=== PATIENT | female | born 1960 | race Caucasian/White ===

== ENCOUNTER → 2016-12-19 | Outpatient (CLI) | payer MEDICARE, BC ==
--- NOTE | 2016-12-20 08:58 | MM ---
Reason for exam: screening (asymptomatic). Last mammogram was performed 1 year and 1 month ago. History: Patient is postmenopausal. Physical Findings: A clinical breast exam by your physician is recommended on an annual basis and results should be correlated with mammographic findings. MG 3D Screening Mammo W/Cad Bilateral CC and MLO view(s) were taken. Prior study comparison: November 15, 2015, bilateral MG 3d screening mammo w/cad. April 08, 2013, mammogram, performed at [facility]. There are scattered fibroglandular densities. There is no discrete abnormality. No significant changes when compared with prior studies. ASSESSMENT: Negative, BI-RAD 1 RECOMMENDATION: Routine screening mammogram of both breasts in 1 year.
== END | disposition home or self-care (01) ==
LOC: RADMAMWWP 08:09
PROVIDERS: ATTEND Pediatrics
DX: Z12.31 Encounter for screening mammogram for malignant neoplasm of breast (principal)
CPT/HCPCS: 77063; G0202

== ENCOUNTER → 2018-01-09 | Outpatient (CLI) | payer MEDICARE, BC ==
--- NOTE | 2018-01-19 11:54 | MM ---
Reason for exam: screening (asymptomatic). Last mammogram was performed 1 year and 1 month ago. History: Patient is postmenopausal. Physical Findings: A clinical breast exam by your physician is recommended on an annual basis and results should be correlated with mammographic findings. MG 3D Screening Mammo W/Cad Bilateral CC and MLO view(s) were taken. Prior study comparison: December 19, 2016, bilateral MG 3d screening mammo w/cad. November 15, 2015, bilateral MG 3d screening mammo w/cad. The breast tissue is heterogeneously dense. This may lower the sensitivity of mammography. There is no discrete abnormality. No significant changes when compared with prior studies. ASSESSMENT: Negative, BI-RAD 1 RECOMMENDATION: Routine screening mammogram of both breasts in 1 year.
== END | disposition home or self-care (01) ==
LOC: RADMAMWWP 14:09
PROVIDERS: ATTEND Pediatrics
DX: Z12.31 Encounter for screening mammogram for malignant neoplasm of breast (principal)
CPT/HCPCS: 77063; 77067

== ENCOUNTER → 2019-03-08 | Outpatient (CLI) | payer MEDICARE, BC ==
--- NOTE | 2019-03-09 13:23 | USB ---
Reason for exam: clinical finding. History: Patient is postmenopausal. Physical Findings: Nurse did not find any significant physical abnormalities on exam. US Breast Limited RT Right limited breast ultrasound including focal area of concern, retroareolar and axilla demonstrates a 0.5 x 0.4 x 0.4cm vascular lesion at 10 o'clock, mass with increased through transmission hilum, appears as an intramammary lymph node. These results were verbally communicated with the patient and result sheet given to the patient on 03/08/19. ASSESSMENT: Benign, BI-RAD 2 RECOMMENDATION: Routine screening mammogram of both breasts in 1 year.
== END | disposition home or self-care (01) ==
LOC: RADUSWWP 10:54
PROVIDERS: ATTEND Pediatrics
DX: R92.8 Other abnormal and inconclusive findings on diagnostic imaging of breast (principal)

== ENCOUNTER → 2019-03-23 | Outpatient (CLI) | payer MEDICARE, BC ==
--- NOTE | 2019-03-23 15:07 | P.BASOAP ---
Subjective Progress Note Date: 03/23/19 Principal diagnosis: Morbid obesity Patient presents today for follow-up bariatric evaluation. Patient is known to our service from previous lap band placement years ago. She had been following the at [facility]. Her band has been empty for the last several years. Despite that the patient has had episodes of dysphagia and vomiting along with reflux symptoms. She is interested in band removal. She is due for colonoscopy at this time. We have her scheduled currently for upper and lower endoscopy this Friday. Patient is not interested in band conversion. Mild abdominal pain at times. Last colonoscopy 4-1/2 years ago. Hyperplastic polyp found at that time. Last esophagram 2014 was normal. Objective - Exam Abdomen: Soft, nontender, nondistended Assessment/Plan (1) Morbid obesity Narrative/Plan: Will proceed with upper and lower endoscopy this Friday. Following that we'll tentatively plan band removal. Patient not interested in band conversion. Plan: Date: Initial Weight: Initial BMI: Current Weight: Current BMI: Type of Surgery: Total Volume in Band: Previous Volume: Volume Removed: Volume Added: Band Size:
[2019-03-23 15:21] VITALS: BP 163/84; PULSE 57; TEMP 98.2; BMI 37.8
== END ==
LOC: BARWHC3 13:43
PROVIDERS: ATTEND Surgery
DX: E66.01 Morbid (severe) obesity due to excess calories (principal); R10.9 Unspecified abdominal pain; Z68.38 Body mass index [BMI] 38.0-38.9, adult
CPT/HCPCS: 99211

== ENCOUNTER → 2019-03-26 | Day surgery (SDC) | payer MEDICARE, BC ==
[2019-03-24 11:00] VITALS: BMI 38.0
[~2019-03-26] MED LIST: HYDROcodone/APAP 7.5-325MG 1 EACH TAB PO ONE; LACTATED RINGERS 1,000 ML IV SCH; LIDOCAINE 1% 20 ML VIAL (10MG/ML) FOR IV START INTRADERMA PRN; LIDOCAINE 1% INJ 10MG/ML (20 ML MDV) ONE; MIDAZOLAM 2 MG/2 ML VIAL IV ONE; ONDANSETRON 4 MG/2 ML VIAL IVP ONE; PROPOFOL 10 MG/ML 20 ML VIAL IV ONE
[2019-03-26 07:49] VITALS: TEMP 98.1
--- NOTE | 2019-03-26 07:54 | P.GSHP ---
History of Present Illness H&P Date: 03/26/19 Chief Complaint: Vomiting, GERD, screening Patient on our service. Underwent previous lap band placement. Patient's lap band has been emptied. Despite that the patient is having episodes of reflux and vomiting. She is interested in band removal. Previous upper GI several years ago was normal. Also due for screening colonoscopy. No GI complaints. Past Medical History Past Medical History: Diabetes Mellitus, GERD/Reflux, Hyperlipidemia, Hypertension Additional Past Medical History / Comment(s): PT STATES HX OF "INFECTIOUS DISEASE" RT KNEE 07/13/13-HAD TO BE ON VANCOMYCIN-NOT SURE WHAT TYPE OF INFECTION IT WAS History of Any Multi-Drug Resistant Organisms: Other MDRO Date of last positivie culture/infection: 07/13/13 MDRO Source:: LT KNEE Past Surgical History: Back Surgery, Cholecystectomy, Hysterectomy, Joint Replacement, Orthopedic Surgery Additional Past Surgical History / Comment(s): LYSIS OF ADHESIONS. RT ANKLE REPAIR. RT ROTATOR CUFF REPAIR. CTR-BILAT X 2. COLONSCOPY. LT KNEE. LT TKA X 2. RT KNEE SCOPES X 3. D & C Past Anesthesia/Blood Transfusion Reactions: Motion Sickness, Postoperative Nausea & Vomiting (PONV) Smoking Status: Never smoker - Past Family History Mother Family Medical History: Cancer Father Family Medical History: Deep Vein Thrombosis (DVT) Medications and Allergies Home Medications Medication Instructions Recorded Confirmed Type DULoxetine HCL [Cymbalta] 60 mg PO HS 07/15/14 03/26/19 History Ezetimibe [Zetia] 10 mg PO HS 07/15/14 03/26/19 History Furosemide [Lasix] 40 mg PO DAILY 07/15/14 03/26/19 History HYDROcodone/APAP 7.5-325MG [[place] 1 each PO Q6HR PRN 07/15/14 03/26/19 History 7.5-325] INSULIN ASPART (NovoLOG) [NovoLOG] 0 unit SQ TID PRN 07/15/14 03/26/19 History Insulin Glargine [Lantus] 40 unit SQ DAILY 07/15/14 03/26/19 History metFORMIN HCL [Glucophage] 500 mg PO BID 07/15/14 03/26/19 History Baclofen [Lioresal] 10 mg PO TID 03/03/19 03/26/19 History Multivitamins, Thera [Multivitamin 1 tab PO DAILY 03/03/19 03/26/19 History (formulary)] Topiramate [Topamax] 50 mg PO BID 03/03/19 03/26/19 History Escitalopram [Lexapro] 5 mg PO DAILY 03/24/19 03/26/19 History Omeprazole 20 mg PO DAILY 03/24/19 03/26/19 History Allergies Allergy/AdvReac Type Severity Reaction Status Date / Time nickel Allergy Rash/Hives Verified 03/26/19 07:32 Surgical - Exam Vital Signs Temp Pulse Resp BP Pulse Ox 98.1 F 88 16 165/85 98 03/26/19 07:35 03/26/19 07:35 03/26/19 07:35 03/26/19 07:35 03/26/19 07:35 Physical exam: General: Well-developed, well-nourished HEENT: Normocephalic, sclerae nonicteric Abdomen: Nontender, nondistended Extremities: No edema Neuro: Alert and oriented Assessment and Plan (1) GERD (gastroesophageal reflux disease) Narrative/Plan: Will proceed with upper and lower endoscopy at this time. Current Visit: Yes Status: Acute Code(s): K21.9 - GASTRO-ESOPHAGEAL REFLUX DISEASE WITHOUT ESOPHAGITIS SNOMED Code(s): 200580427
[2019-03-26 08:01] LABS: Glucose,Whole Blood 160 mg/dL (75-99)
--- NOTE | 2019-03-26 09:37 | P.PCN ---
Date of Procedure: 03/26/19 Procedure(s) Performed: PREOPERATIVE DIAGNOSIS: Colon cancer screening, GERD, vomiting POSTOPERATIVE DIAGNOSIS: Mild gastritis, poor colonic prep, descending colon and rectal polyp PROCEDURE: 1. EGD with biopsy 2. Colonoscopy with snare polypectomy and biopsy ANESTHESIA: [facility] [place]GEON: Osmany Abbasi M.D. SPECIMENS: Antrum, polyps ENDOSCOPIC PROCEDURE: The patient was on the endoscopy table in the left decubitus position. The Olympus gastroscope was inserted into the oropharynx and passed under direct visualization to the region of the third portion of the duodenum. From that point the scope was slowly withdrawn inspecting all surfaces carefully. There were no neoplastic inflammatory or polypoid lesions throughout the duodenum. The pylorus was widely patent. The stomach was carefully inspected. There was mild gastritis present. A biopsy of the antrum took place to rule out H. pylori. Retroflexion revealed a band plication. No evidence of erosion or prolapse seen. The esophagus was then carefully examined. There were no neoplastic inflammatory or polypoid lesions throughout the visualized esophagus. The patient was kept on the endoscopy table in the left decubitus position. The Olympus colonoscope was inserted into the anus and passed under direct visualization to the base of the cecum. The appendiceal orifice was visualized. From that point the scope was slowly withdrawn inspecting all surfaces carefully. There were no neoplastic inflammatory or polypoid lesions throughout the cecum, ascending, and transverse colon. In the descending colon a small polyp was identified and removed using the biopsy forceps. The descending and sigmoid beyond that appeared normal. In the rectum proximally a small polyp was identified and removed using the snare with cautery technique. The remainder of the rectovaginal fistula. The patient's prep was suboptimal with limitations of mucosal visualization throughout. No visible diverticulosis. Digital rectal examination was normal. The patient was taken to the recovery room in stable condition per anesthesia guidelines. RECOMMENDATIONS: Await biopsy results. Proceed with band removal.
[2019-03-26 09:53] LABS: Glucose,Whole Blood 141 mg/dL (75-99)
[2019-03-26 10:13] VITALS: RESP 16
[2019-03-26 10:26] VITALS: BP 152/89; PULSE 67
== END ==
LOC: ORWHC2ENDO 07:15
PROVIDERS: ATTEND Surgery
DX: Z12.11 Encounter for screening for malignant neoplasm of colon (principal); D12.8 Benign neoplasm of rectum; K29.50 Unspecified chronic gastritis without bleeding; K63.89 Other specified diseases of intestine; K21.9 Gastro-esophageal reflux disease without esophagitis; E11.9 Type 2 diabetes mellitus without complications; E78.5 Hyperlipidemia, unspecified; I10 Essential (primary) hypertension; Z86.19 Personal history of other infectious and parasitic diseases; Z96.652 Presence of left artificial knee joint; Z97.2 Presence of dental prosthetic device (complete) (partial); Z84.89 Family history of other specified conditions; Z79.4 Long term (current) use of insulin; Z79.899 Other long term (current) drug therapy; Z79.891 Long term (current) use of opiate analgesic; Z91.048 Other nonmedicinal substance allergy status
CPT/HCPCS: 88305; 45380; 45385; 43239; J2250; J2405; J2001; J2704

== ENCOUNTER → 2019-04-27 | Outpatient (CLI) | payer MEDICARE, BC ==
[2019-04-27 09:48] LABS: Basophils # (A) 0.1 k/uL (0-0.2); Basophils % (A) 1 %; Eosinophils # (A) 0.5 k/uL (0-0.7); Eosinophils % (A) 5 %; HCT 41.4 % (34.0-46.0); HGB 13.5 gm/dL (11.4-16.0); Lymphocytes # (A) 1.5 k/uL (1.0-4.8); Lymphocytes % (A) 17 %; MCH 28.8 pg (25.0-35.0); MCHC 32.7 g/dL (31.0-37.0); MCV 88.1 fL (80.0-100.0); Mean Platelet Volume 6.6; Monocytes # (A) 0.4 k/uL (0-1.0); Monocytes % (A) 5 %; Neutrophils # (A) 6.4 k/uL (1.3-7.7); Neutrophils % (A) 72 %; Platelet Count 273 k/uL (150-450); WBC 8.9 k/uL (3.8-10.6)
[2019-04-27 10:00] LABS: Calcium 9.7 mg/dL (8.4-10.2); Potassium 4.7 mmol/L (3.5-5.1); Total Bilirubin 0.7 mg/dL (0.2-1.3); Total Protein 6.7 g/dL (6.3-8.2)
== END | disposition home or self-care (01) ==
LOC: LABPAT 08:20
PROVIDERS: ATTEND Surgery
DX: Z01.812 Encounter for preprocedural laboratory examination (principal)
CPT/HCPCS: 36415; 80053; 85025; 93005

== ENCOUNTER 2019-05-10 08:33 | Day surgery (SDC) | payer MEDICARE, BC ==
[2019-04-28 14:01] VITALS: BMI 37.8
[~2019-05-10 08:33] MED LIST changes: +DEXAMETHASONE SOD PHOSPHATE 10 MG/ML 1 ML VIAL IV ONE; +HEPARIN SODIUM,PORCINE 5,000 UNIT/ML 1 ML VIAL SQ ONE; -HYDROcodone/APAP 7.5-325MG 1 EACH TAB PO ONE; -LIDOCAINE 1% INJ 10MG/ML (20 ML MDV) ONE; -MIDAZOLAM 2 MG/2 ML VIAL IV ONE; +MIDAZOLAM 2 MG/2 ML VIAL IV PRN; -PROPOFOL 10 MG/ML 20 ML VIAL IV ONE; +SCOPOLAMINE 1.5MG/72HR PATCH TRANSDERM ONE
[2019-05-10 09:20] LABS: Glucose,Whole Blood 138 mg/dL (75-99)
--- NOTE | 2019-05-10 10:05 | P.GSHP ---
History of Present Illness H&P Date: 05/10/19 Chief Complaint: Band intolerance, GERD, intractable vomiting Patient well-known to our service from previous lap band placement. Patient has no fluid in her band for several years. Despite that patient having intractable vomiting with reflux. Mild pain at times. Interested in band removal. Past Medical History Past Medical History: Diabetes Mellitus, GERD/Reflux, Hyperlipidemia, Hypertension Additional Past Medical History / Comment(s): severe headaches History of Any Multi-Drug Resistant Organisms: None Reported Past Surgical History: Back Surgery, Bariatric Surgery, Cholecystectomy, Hysterectomy, Joint Replacement, Orthopedic Surgery Additional Past Surgical History / Comment(s): LYSIS OF ADHESIONS,RT ANKLE REPAIR,RT ROTATOR CUFF REPAIR,. CTR-BILAT X 2,COLONSCOPY,lapband. LT TKA ,antibiotic spacer placed then lt total knee revision,. RT KNEE SCOPES X 3,D & C Past Anesthesia/Blood Transfusion Reactions: Motion Sickness, Postoperative Nausea & Vomiting (PONV) Additional Past Anesthesia/Blood Transfusion Reaction / Comment(s): no hx blood transfusion Smoking Status: Never smoker - Past Family History Mother Family Medical History: Cancer Father Family Medical History: Deep Vein Thrombosis (DVT) Medications and Allergies Home Medications Medication Instructions Recorded Confirmed Type DULoxetine HCL [Cymbalta] 60 mg PO HS 07/15/14 04/28/19 History Ezetimibe [Zetia] 10 mg PO HS 07/15/14 04/28/19 History Furosemide [Lasix] 40 mg PO DAILY 07/15/14 04/28/19 History HYDROcodone/APAP 7.5-325MG [[place] 1 each PO Q6HR PRN 07/15/14 04/28/19 History 7.5-325] INSULIN ASPART (NovoLOG) [NovoLOG] 0 unit SQ TID PRN 07/15/14 04/28/19 History Insulin Glargine [Lantus] 40 unit SQ QAM 07/15/14 04/28/19 History metFORMIN HCL [Glucophage] 500 mg PO BID 07/15/14 04/28/19 History Baclofen [Lioresal] 10 mg PO TID 03/03/19 04/28/19 History Multivitamins, Thera [Multivitamin 1 tab PO DAILY 03/03/19 04/28/19 History (formulary)] Topiramate [Topamax] 50 mg PO BID 03/03/19 04/28/19 History Escitalopram [Lexapro] 5 mg PO QAM 03/24/19 04/28/19 History Omeprazole 20 mg PO QAM 03/24/19 04/28/19 History Allergies Allergy/AdvReac Type Severity Reaction Status Date / Time nickel Allergy Rash/Hives Verified 05/10/19 08:59 Surgical - Exam Vital Signs Temp Pulse Resp BP Pulse Ox 97.3 F L 80 16 174/81 97 05/10/19 09:02 05/10/19 09:02 05/10/19 09:02 05/10/19 09:02 05/10/19 09:02 Physical exam: General: Well-developed, well-nourished HEENT: Normocephalic, sclerae nonicteric Abdomen: Nontender, nondistended Extremities: No edema Neuro: Alert and oriented Results - Labs Abnormal Lab Results - Last 24 Hours (Table) 05/10/19 Range/Units 09:19 POC Glucose (mg/dL) 138 H (75-99) mg/dL Assessment and Plan (1) GERD (gastroesophageal reflux disease) Narrative/Plan: Will proceed with laparoscopic, possible open lap band removal at this time. R isks of bleeding, infection, perforation, conversion, persistent vomiting and reflux, weight gain, reflux reviewed. She understands and wishes to proceed. Current Visit: No Status: Acute Code(s): K21.9 - GASTRO-ESOPHAGEAL REFLUX DISEASE WITHOUT ESOPHAGITIS SNOMED Code(s): 569042881
[2019-05-10] MEDS ORDERED: PROPOFOL 10 MG/ML 20 ML VIAL IV ONE (10:11)
[2019-05-10] MEDS ORDERED: SUCCINYLCHOLINE CHLORIDE 100 MG/5 ML SYR IV ONE (10:11)
[2019-05-10] MEDS ORDERED: GLYCOPYRROLATE 0.2 MG/ML 2 ML VIAL ONE (10:11)
[2019-05-10] MEDS ORDERED: NEOSTIGMINE 1 MG/ML 10 ML VIAL ONE (10:11)
[2019-05-10] MEDS ORDERED: MIDAZOLAM 2 MG/2 ML VIAL ONE (10:11)
[2019-05-10] MEDS ORDERED: fentaNYL (PF) 50 MCG/ML 2 ML AMP ONE (10:11)
[2019-05-10] MEDS ORDERED: LIDOCAINE 1% INJ 10MG/ML (20 ML MDV) ONE (10:11)
[2019-05-10] MEDS ORDERED: METOPROLOL TARTRATE 5 MG/5 ML VIAL IVP ONE (10:11)
[2019-05-10] MEDS ORDERED: ROCURONIUM BROMIDE 10 MG/ML 10 ML VIAL IV ONE (10:11)
[2019-05-10] MEDS ORDERED: BUPIVACAIN-EPI 0.25%-1:200,000 30 ML VIAL SQ ONE ×2 (10:15→11:40)
[2019-05-10] MEDS ORDERED: LACTATED RINGERS 1,000 ML IV ONE (11:16)
[2019-05-10] MEDS ORDERED: NALOXONE 0.4 MG/ML 1 ML VIAL IV PRN (11:47)
[2019-05-10] MEDS ORDERED: HYDROcodone/APAP 5-325MG 1 EACH TAB PO PRN (11:47)
--- NOTE | 2019-05-10 11:58 | P.OP ---
Date of Procedure: 05/10/19 Procedure(s) Performed: PREOPERATIVE DIAGNOSIS: Band intolerance/abdominal pain POSTOPERATIVE DIAGNOSIS: Same PROCEDURE: Laparoscopic lap band removal, lysis of adhesions SURGEON: Ayleen EBL: Minimal ANESTHESIA: General COMPLICATIONS: None OPERATIVE PROCEDURE: The patient was brought and placed on the operating room table in the supine position. The patient was placed under general anesthesia at that time. The patient was then placed in lithotomy. The abdomen was prepped and draped in the usual sterile fashion. The previous port incision was localized and then incised using a scalpel. The port was easily excised using electrocautery. Entrance into the peritoneal cavity occurred using a 5 mm op tical trocar through the old trocar entrance site. Insufflation took place to 15 mmHg. the patient had adhesions immediately beneath the port site. A 5 mm trocar was placed in the right upper quadrant and left upper quadrants laterally. Through those 2 ports we're able to lyse the adhesions using both blunt dissection and the LigaSure. No bowel was identified within the adhesions. A right subxiphoid 5 mm trocar Mart additional 5 mm trocar was placed under direct visualization in the left lateral upper quadrant. The original 5 mm trocar was switched to a 15 mm trocar. A additional 5 mm trocar was placed in the left upper quadrant superior to the 15 mm trocar. There were adhesions to the band in the buccal that were lysed using both the LigaSure and electrocautery. The band was then cut using the laparoscopic moris. The band was then removed easily in 2 portions through the 15 mm trocar site. The stomach itself was inspected and revealed no evidence of erosion or prolapse. The trochars were removed. The fascia at the 15 mm site was closed using a [place] [id number] 0 Vicryl stitch. The subcutaneous tissues at the port site was closed using a 3-0 Vicryl suture. The skin at all 4 incision sites were closed using 4-0 Monocryl sutures. Skin glue and sterile dressings were then applied. DISPOSITION: Stable to recovery room
[2019-05-10 12:05] VITALS: TEMP 97.4
[2019-05-10 12:23] LABS: Glucose,Whole Blood 182 mg/dL (75-99)
[2019-05-10] MEDS: HYDROmorphone 0.5 MG/0.5 ML SYRINGE IVP PRN ×2 (12:30→12:40)
[2019-05-10] MEDS ORDERED: HYDROcodone/APAP 5-325MG 1 EACH TAB PO ONE (13:37)
[2019-05-10 14:24] VITALS: BP 132/75; PULSE 81; RESP 18
== END 2019-05-10 14:56 | disposition home or self-care (01) ==
LOC: OR 08:33
PROVIDERS: ATTEND Surgery
DX: K95.09 Other complications of gastric band procedure (principal); K66.0 Peritoneal adhesions (postprocedural) (postinfection); R11.10 Vomiting, unspecified; K21.9 Gastro-esophageal reflux disease without esophagitis; E11.9 Type 2 diabetes mellitus without complications; E78.5 Hyperlipidemia, unspecified; I10 Essential (primary) hypertension; F32.9 Major depressive disorder, single episode, unspecified; Z90.49 Acquired absence of other specified parts of digestive tract; Z90.710 Acquired absence of both cervix and uterus; Z97.2 Presence of dental prosthetic device (complete) (partial); Z96.652 Presence of left artificial knee joint; Z80.9 Family history of malignant neoplasm, unspecified; Z84.89 Family history of other specified conditions; Z79.4 Long term (current) use of insulin; Z79.899 Other long term (current) drug therapy; Z91.048 Other nonmedicinal substance allergy status
CPT/HCPCS: 43774; J2250; J1644; J1100; J2710; J0690; J2405; J2001; J3010; J0330; J2704; J1170

== ENCOUNTER → 2019-05-19 | Outpatient (CLI) | payer MEDICARE, BC ==
[2019-05-19 11:18] VITALS: BMI 38.0
[2019-05-19 11:24] VITALS: BP 158/82; PULSE 76; TEMP 97.8
--- NOTE | 2019-05-19 19:09 | P.BASOAP ---
Subjective Progress Note Date: 05/19/19 Principal diagnosis: Band intolerance Patient returns for follow-up after recent band removal. Was doing well however noticed some redness and itching at all of her incision sites. No fevers. No dysphagia or abdominal pain. Objective - Vital Signs Vital signs: Vital Signs Temp 97.8 F 05/19/19 11:15 Pulse 76 05/19/19 11:15 Resp BP 158/82 05/19/19 11:15 Pulse Ox Intake & Output 05/19/19 05/19/19 05/20/19 06:59 18:59 06:59 Weight 107.048 kg - Exam All laparoscopy incisions site with mild erythema, glue still intact, nontender Assessment/Plan Plan: Patient doing well following band removal. She has developed an ALLERGIC reaction around the glue sites. Glue was removed here in the office today. Continue Benadryl and steroid cream. If symptoms persist or increase Will start Medrol Dosepak. Follow up as needed.
== END | disposition home or self-care (01) ==
LOC: BARWHC3 11:00
PROVIDERS: ATTEND Surgery
DX: Z48.815 Encounter for surgical aftercare following surgery on the digestive system (principal); Z98.84 Bariatric surgery status; Z79.899 Other long term (current) drug therapy
CPT/HCPCS: 99211

== ENCOUNTER → 2019-07-22 | Outpatient (CLI) | payer MEDICARE, BC ==
[2019-07-22 16:31] LABS: Potassium 4.3 mmol/L (3.5-5.1)
[2019-07-22 16:49] LABS: HCT 42.6 % (34.0-46.0); HGB 13.9 gm/dL (11.4-16.0); MCH 28.7 pg (25.0-35.0); MCHC 32.6 g/dL (31.0-37.0); MCV 87.9 fL (80.0-100.0); Mean Platelet Volume 8.5; Platelet Count 261 k/uL (150-450); RBC 4.85 m/uL (3.80-5.40); RDW 13.6 % (11.5-15.5); WBC 9.4 k/uL (3.8-10.6)
== END | disposition home or self-care (01) ==
LOC: LABPAT 15:12
PROVIDERS: ATTEND Internal Medicine Cardiovascular Disease
DX: Z01.812 Encounter for preprocedural laboratory examination (principal); I25.10 Atherosclerotic heart disease of native coronary artery without angina pectoris
CPT/HCPCS: 36415; 80051; 82565; 84520; 85027

== ENCOUNTER → 2019-08-03 | Day surgery (SDC) | payer MEDICARE, BC ==
[2019-07-29 09:30] VITALS: BMI 38.7
[~2019-08-03] MED LIST changes: +ALPRAZolam 0.25 MG TAB PO ONE; +ALPRAZolam 0.25 MG TAB PO PRN; +ALPRAZolam 0.5 MG TAB PO PRN; +ASPIRIN 325 MG TAB PO ONE; -DEXAMETHASONE SOD PHOSPHATE 10 MG/ML 1 ML VIAL IV ONE; +HEPARIN SODIUM 1,000 UN/ML (10ML VL) ONE; -HEPARIN SODIUM,PORCINE 5,000 UNIT/ML 1 ML VIAL SQ ONE; +IOPAMIDOL-370 125ML BTL INJ ONE; -LACTATED RINGERS 1,000 ML IV SCH; -LIDOCAINE 1% 20 ML VIAL (10MG/ML) FOR IV START INTRADERMA PRN; +LIDOCAINE 1% INJ 10MG/ML (20 ML MDV) ONE; +LIDOCAINE 1% INJ 10MG/ML (20 ML MDV) SQ ONE; +MIDAZOLAM 2 MG/2 ML VIAL IV ONE; -MIDAZOLAM 2 MG/2 ML VIAL IV PRN; +NITROGLYCERIN SL TABS 0.4 MG TAB SUBLINGUAL PRN; -ONDANSETRON 4 MG/2 ML VIAL IVP ONE; +RX INFO: IV CONTRAST WAS GIVEN 1 EACH MISC MISCELLANE PRN; -SCOPOLAMINE 1.5MG/72HR PATCH TRANSDERM ONE; +SODIUM CHLORIDE 0.9% 1,000 ML IV SCH; +SODIUM CHLORIDE 0.9% 1,000 ML in EMPTY BAG 1 BAG IV ONE; +VERAPAMIL 2.5 MG/ML 2 ML AMP ONE; +VERAPAMIL SYRINGE (5 MG/10 ML) INTRAARTER ONE; +fentaNYL (PF) 50 MCG/ML 2 ML AMP IV ONE; +fentaNYL (PF) 50 MCG/ML 2 ML AMP ONE
[2019-08-03 06:37] LABS: Glucose,Whole Blood 160 mg/dL (75-99)
[2019-08-03 06:39] VITALS: TEMP 98.2
--- NOTE | 2019-08-03 08:03 | P.CARDCATH ---
Date of Procedure: 08/03/19 Preoperative Diagnosis: Positive stress test and nonsustained V. tach and risk factors of hypertension, hypercholesterolemia and diabetes Postoperative Diagnosis: Normal coronary arteries and normal end-diastolic pressure Procedure(s) Performed: Left heart catheterization without left ventriculography Description of Procedure: HISTORY: This is a 58-year-old female with history of hypertension, diabetes, hypercholesteremia and obesity who was noted to have evidence of nonsustained V. tach and positive changes with ischemia in the inferolateral wall, on the stress test. Patient is advised to have a cardiac catheterization for definitive diagnosis. CONSENT:I have discussed the risks, benefits and alternative therapies for the above-mentioned procedure and for both sedation/analgesia as well as necessary blood product administration, if indicated, as they pertain to this patient. The patient has indicated understanding and acceptance of the risks and procedures discussed. PROCEDURE: Patient was brought to the lab in a fasting state. Patient was given some IV sedation. The right wrist is infiltrated with lidocaine and right radial artery was entered using Seldinger technique. A 6-Turkish catheter was left in place and selective coronary arteriography was performed. Patient tolerated the procedure well. TR band was applied for hemostasis. No immediate complications were noted and patient was transferred to [facility] in a stable condition Conscious Sedation: Versed 1mg Fentanyl 50 g Duration 19minutes HEMODYNAMICS: The aortic pressure is about 160/95. Left ventricle end-diastolic pressure is 5-10 SELECTIVE CORONARY ARTERIOGRAPHY: LEFT MAIN: This is a normal length and free of occlusive disease THE LEFT ANTERIOR DESCENDING CORONARY ARTERY: This is a good caliber vessel that becomes relatively small in caliber in mid and distal distribution. Free of any significant focal occlusive disease. Use ice to 2 diagonal branches which are free of occlusive disease THE LEFT CIRCUMFLEX AND IS CORONARY ARTERY: This is a dominant vessel giving rise to OM branch and also PDA branch and PLV branches. The circumflex and branches are free of occlusive disease THE RIGHT CORONARY ARTERY: Nondominant vessel free of occlusive disease LEFT VENTRICULOGRAPHY: Not performed FINAL IMPRESSION: normal coronary arteries. The LAD appears to be small in caliber in the mid to distal distribution. Normal end-diastolic pressure PLAN: Maximum medical therapy and this factor modification PROGNOSIS: Fair
[2019-08-03 08:11] VITALS: RESP 16
[2019-08-03 12:23] VITALS: BP 158/77; PULSE 58
== END ==
LOC: CATHCVL 06:01
PROVIDERS: ATTEND Internal Medicine Cardiovascular Disease
DX: I25.9 Chronic ischemic heart disease, unspecified (principal); I77.89 Other specified disorders of arteries and arterioles; I47.2 Ventricular tachycardia; I10 Essential (primary) hypertension; E11.9 Type 2 diabetes mellitus without complications; E78.00 Pure hypercholesterolemia, unspecified; E78.2 Mixed hyperlipidemia; R60.0 Localized edema; G45.9 Transient cerebral ischemic attack, unspecified; E66.9 Obesity, unspecified; Z68.38 Body mass index [BMI] 38.0-38.9, adult; Z79.899 Other long term (current) drug therapy; Z79.4 Long term (current) use of insulin; Z82.49 Family history of ischemic heart disease and other diseases of the circulatory system
CPT/HCPCS: 93458; C1769; C1894; J2250; J2001; J3010; J1644; Q9967

== ENCOUNTER → 2020-02-15 | Outpatient (CLI) | payer MEDICARE, BC ==
[2020-02-15 20:20] LABS: African American GFR (CKD) 82.3 (60.0-200.0); Albumin 4.2 g/dL (3.80-4.90); Albumin/Globulin Ratio 1.91 (1.60-3.17); Anion Gap 7.4 mmol/L (4.00-12.00); BUN/Creat Ratio 18.89 Ratio (12.00-20.00); Calcium 9.4 mg/dL (8.7-10.3); Carbon Dioxide 26.6 mmol/L (21.6-31.8); Globulin 2.2 g/dL (1.6-3.3); Potassium 4.4 mmol/L (3.5-5.5); Total Bilirubin 0.5 mg/dL (0.3-1.2); Total Protein 6.4 g/dL (6.2-8.2)
== END | disposition home or self-care (01) ==
LOC: LABWHC1 11:26
PROVIDERS: ATTEND Internal Medicine Cardiovascular Disease
DX: R07.9 Chest pain, unspecified (principal)
CPT/HCPCS: 36415; 80053; 84484; 85379

== ENCOUNTER → 2020-02-18 | Outpatient (CLI) | payer MEDICARE, BC ==
--- NOTE | 2020-02-18 18:39 | CT ---
EXAMINATION TYPE: CT angio chest DATE OF EXAM: 02/18/2020 COMPARISON: None HISTORY: chest pain, SOB CT DLP: 494.5 mGycm Automated exposure control for dose reduction was used. CONTRAST: Performed with IV Contrast, patient injected with 68cc mL of Isovue 370. There are 3-D post processed images. The lungs are clear of infiltrate. There is no pleural effusion. Heart is enlarged. There are no nigel r masses. There is no mediastinal adenopathy. Thoracic aorta appears normal. There is no aneurysm or dissection. I see no filling defects in the pulmonary arteries. Thoracic spine is intact. There is mild spurring of the endplates. Sternum is intact. IMPRESSION: No evidence of pulmonary embolism. Negative exam.
== END | disposition home or self-care (01) ==
LOC: RADCTMAIN 17:01
PROVIDERS: ATTEND Internal Medicine Cardiovascular Disease
DX: R06.02 Shortness of breath (principal); R07.9 Chest pain, unspecified; R79.1 Abnormal coagulation profile
CPT/HCPCS: 82565; 84520; 71275; 36415; Q9967

== ENCOUNTER → 2020-03-21 | Outpatient (CLI) | payer MEDICARE, BC ==
--- NOTE | 2020-03-21 14:03 | MM ---
Reason for exam: screening (asymptomatic). Last mammogram was performed 2 years and 2 months ago. History: Patient is postmenopausal. Physical Findings: A clinical breast exam by your physician is recommended on an annual basis and results should be correlated with mammographic findings. MG 3D Screening Mammo W/Cad Bilateral CC and MLO view(s) were taken. Prior study comparison: January 09, 2018, bilateral MG 3d screening mammo w/cad. December 19, 2016, bilateral MG 3d screening mammo w/cad. There are scattered fibroglandular densities. There is no discrete abnormality. ASSESSMENT: Negative, BI-RAD 1 RECOMMENDATION: Routine screening mammogram of both breasts in 1 year.
== END | disposition home or self-care (01) ==
LOC: RADMAMWWP 07:42
PROVIDERS: ATTEND Pediatrics
DX: Z12.31 Encounter for screening mammogram for malignant neoplasm of breast (principal)
CPT/HCPCS: 77063; 77067

== ENCOUNTER → 2020-04-06 | Outpatient (CLI) | payer MEDICARE, BC ==
--- NOTE | 2020-04-06 10:25 | MR ---
EXAMINATION TYPE: MR shoulder LT wo con DATE OF EXAM: 04/06/2020 COMPARISON: None HISTORY: AC Joint Arthopathy TECHNIQUE: Multiplanar, multisequence imaging of the left shoulder is performed without contrast. FINDINGS: There is a glenohumeral joint effusion. There is a significant amount of fluid in the subac romial subdeltoid bursa. There is a near complete tear of the distal margin and insertion of the supr aspinatus tendon with diffuse arthropathy extending a length of the distal 2.5 cm of the tendon. Infraspinatus tendon demonstrates abnormal signal along its anterior fibers compatible with a partial through thickness tear. No retraction. Subscapularis intact. Bony labrum are grossly intact but non arthrogram technique. Narrowing of the glenohumeral joint and arthropathy of the AC joint. Atrophy of the rotator cuff musculature noted. Chronic cystic changes in volving the head of the humerus likely related to chronic impingement. Bicipital tendon is well situated the bicipital groove. IMPRESSION: 1. Severe diffuse tendinosis of the distal 2.5 cm of the supraspinatus tendon with a near complete th rough thickness tear near the insertion. 2. Partial through thickness tear anterior fibers near the insertion of the infraspinatus tendon with no retraction. 3. Impingement with diffuse muscular atrophy of the rotator cuff. #4 there is a glenohumeral joint ef fusion as well as a significant amount of fluid in the subacromial subdeltoid space.
--- NOTE | 2020-04-06 11:57 | BD ---
EXAMINATION TYPE: Axial Bone Density DATE OF EXAM: 04/06/2020 COMPARISON: NONE CLINICAL HISTORY: Osteopenia Height: 5 FT 6 1/2 IN Weight: 249 FRAX RISK QUESTIONS: Alcohol (3 or more units per day): NO Family History (Parent hip fracture): NO Glucocorticoids (More than 3mos): NO (Ex: prednisone, prednisolone, methylprednisolone, dexamethasone, and hydrocortisone). History of Fracture in Adulthood: NO Secondary Osteoporosis: 1. Type 1 Diabetes: NO 2. Hyperthyroidism: NO 3. Menopause before 45: NO 4. Malnutrition: NO 5. Chronic liver disease: NO Rheumatoid Arthritis: YES Current Tobacco Use: NO RISK FACTORS HISTORY OF: Surgery to Spine/Hip(right/left)/Wrist (right/left): SPINE SURG [place] WRIST SURG X 2 When: 2009 SPINE Family History of Osteoporosis: NO Active: YES Diet low in dairy products/other sources of calcium: NO Postmenopausal woman: TOTAL HYST AGE 39 Take estrogen and/or progesterone medications: TOOK HRT FOR SEV WEEKS AFTER HYST THEN STOPPED Poor Health: YES MEDICATIONS: Additional Medications: COREG, METFORMIN, LASIX, CYMBALTA, HUMALOG, , LANTIS, BACLOFEN, EZETIMIMBE, CARVEDILOL,ESCITALOPRAM, ATORVASTATIN, TOPIRAMATE, OMEPRAZOLE, DULOXETINE, Additional History: EXAM MEASUREMENTS: Bone mineral density about the R hip (g/cm2): 1.145 Bone mineral density about the L hip (g/cm2): 1.055 T Score values are as follows: -----R Neck: 0.8 -----L Neck: 0.1 -----R Total: 1.2 -----L Total: 0.7 BASELINE IMPRESSION: Normal (Values between +1 and -1 indicate normal bone mass). Consider repeating this study in 5 year s or sooner if there is some new clinical indication. NOTE: T-SCORE=SD OF THE YOUNG ADULT MEAN.
== END | disposition home or self-care (01) ==
LOC: RADBDWWP 07:59
PROVIDERS: ATTEND Pediatrics
DX: M25.412 Effusion, left shoulder (principal); M62.50 Muscle wasting and atrophy, not elsewhere classified, unspecified site; M67.814 Other specified disorders of tendon, left shoulder; M85.80 Other specified disorders of bone density and structure, unspecified site
CPT/HCPCS: 77080

== ENCOUNTER → 2021-03-28 | Outpatient (CLI) | payer MEDICARE, BC ==
--- NOTE | 2021-03-28 09:52 | XR ---
EXAMINATION TYPE: XR knee 4V LT DATE OF EXAM: 03/28/2021 CLINICAL HISTORY: pain TECHNIQUE: Three views of the left knee are obtained. COMPARISON: 09/28/2014 FINDINGS: Total knee arthroplasty noted. There is soft tissue swelling identified medially. There mirta ears to be heterotopic ossification along the medial femoral component. Small suprapatellar joint eff usion noted. IMPRESSION: There is no acute fracture or dislocation ICD 10 NO FRACTURE, INITIAL EVALUATION
--- NOTE | 2021-03-29 09:27 | MM ---
Reason for exam: screening (asymptomatic). Last mammogram was performed 1 year ago. History: Patient is postmenopausal. Physical Findings: A clinical breast exam by your physician is recommended on an annual basis and results should be correlated with mammographic findings. MG 3D Screening Mammo W/Cad Bilateral CC and MLO view(s) were taken. XCCL view(s) were taken of the right breast. Prior study comparison: March 21, 2020, bilateral MG 3d screening mammo w/cad. January 09, 2018, bilateral MG 3d screening mammo w/cad. There are scattered fibroglandular densities. New nodule upper outer right breast zone C. This finding is changed when compared with previous exams. ASSESSMENT: Incomplete: need additional imaging evaluation, BI-RAD 0 RECOMMENDATION: Special view mammogram and ultrasound of the right breast. [facility] will attempt to contact patient to return for supplemental views and ultrasound.
== END | disposition home or self-care (01) ==
LOC: RADMAMWWP 09:04
PROVIDERS: ATTEND Pediatrics
DX: Z12.31 Encounter for screening mammogram for malignant neoplasm of breast (principal); M25.562 Pain in left knee; Z78.0 Asymptomatic menopausal state
CPT/HCPCS: 77063; 77067

== ENCOUNTER → 2021-04-04 | Outpatient (CLI) | payer MEDICARE, BC ==
--- NOTE | 2021-04-04 12:00 | MM ---
Reason for exam: additional evaluation requested from abnormal screening. Last mammogram was performed less than 1 month ago. History: Patient is postmenopausal. Physical Findings: Nurse did not find any significant physical abnormalities on exam. MG 3D Work Up W/Cad RT Spot compression CC, spot compression MLO, and LM view(s) were taken of the right breast. Prior study comparison: March 28, 2021, bilateral MG 3d screening mammo w/cad. March 21, 2020, bilateral MG 3d screening mammo w/cad. March 08, 2019, right breast US breast limited RT. There are scattered fibroglandular densities. 8mm isodense circumscribed mass upper outer quadrant right breast persists. These results were verbally communicated with the patient and result sheet given to the patient on 04/04/21. ASSESSMENT: Incomplete: need additional imaging evaluation, BI-RAD 0 RECOMMENDATION: Ultrasound of the right breast. (upper outer quadrant)
--- NOTE | 2021-04-04 12:03 | USB ---
Reason for exam: additional evaluation requested from abnormal screening. History: Patient is postmenopausal. US Breast Workup Limited RT Right limited breast ultrasound including focal area of concern, retroareolar and axilla demonstrates a 0.7 x 0.7 x 0.8cm solid, hypoechoic lesion at 10 o'clock. A smaller lesion measuring 5mm was noted here in 2019. Biopsy recommended. Scanned 9-12 o'clock. These results were verbally communicated with the patient and result sheet given to the patient on 04/04/21. ASSESSMENT: Suspicious, BI-RAD 4 RECOMMENDATION: Ultrasound core biopsy of both breasts. Called Dr. Feliciano's office with mammographic findings and has scheduled an appointment for the patient for 05/24/21 at 8:[address] Abbasi. Biopsy scheduled for 04/24/21 at 8:00. PRELIMINARY REPORT CALLED AND FAXED TO DR. ABBASI ON 04/04/21.
== END | disposition home or self-care (01) ==
LOC: RADMAMWWP 08:44
PROVIDERS: ATTEND Pediatrics
DX: N64.89 Other specified disorders of breast (principal); Z78.0 Asymptomatic menopausal state
CPT/HCPCS: 77065; 76642; G0279; 77061

== ENCOUNTER → 2021-04-24 | Day surgery (SDC) | payer MEDICARE, BC ==
[2021-04-24 07:38] VITALS: RESP 16
[2021-04-24 08:39] VITALS: BP 128/83; PULSE 59; TEMP 98.3
--- NOTE | 2021-04-24 09:03 | USB ---
EXAMINATION TYPE: US biopsy breast VAD RT, MG diagnostic mammo RT w CAD DATE OF EXAM: 04/24/2021 CLINICAL HISTORY: R92.8 abnormal mammogram. TECHNIQUE: Ultrasound guided core biopsy of right 10:00 breast. COMPARISON: NONE FINDINGS: The procedure of ultrasound guided core biopsy was explained to the patient. Benefits, alternatives, and risks were discussed. An informed consent was then obtained. The patient was placed in supine positioning for imaging and for the procedure. The overlying skin was prepped and draped in usual sterile fashion. Lidocaine buffered with bicarbonate was used as anesthetic into the skin and subcutaneous tissue up to area of concern in the right 10:00 breast. A león was made with surgical scalpel. Under ultrasound guidance, a 12-gauge vacuum assisted biopsy gun device was used to obtain 3 core samples. Following this, a biopsy clip was left in lesion. Postprocedural mammogram demonstrates appropriate clip placement. The patient tolerated the procedure well without any immediate complication. The patient was kept in the radiology department for short stay after the procedure and then discharged home in stable condition. IMPRESSION: Successful, uncomplicated ultrasound guided core biopsy of area of concern in the right 10:00 breast, full pathology results to follow. Pathology Results: Malignant RIGHT BREAST, ULTRASOUND GUIDED CORE BIOPSY: Encapsulated (intracystic) papillary carcinoma. See Surgical Pathology Cancer Case Summary and Comment. Recommendation Surgical consult of the right breast. АНДРЕЙ
== END ==
LOC: RADUSWWP 07:19
PROVIDERS: ATTEND Surgery
DX: R92.8 Other abnormal and inconclusive findings on diagnostic imaging of breast (principal); C50.911 Malignant neoplasm of unspecified site of right female breast; Z17.0 Estrogen receptor positive status [ER+]
CPT/HCPCS: 88305; 88342; 88341; 77065; 19083; A4648; J2001

== ENCOUNTER 2021-05-11 07:53 | Day surgery (SDC) | payer MEDICARE, BC ==
[2021-05-09 11:47] VITALS: BMI 39.5
[~2021-05-11 07:53] MED LIST changes: +ACETAMINOPHEN TAB 500 MG TAB PO PRN; -ALPRAZolam 0.25 MG TAB PO ONE; -ALPRAZolam 0.25 MG TAB PO PRN; -ALPRAZolam 0.5 MG TAB PO PRN; -ASPIRIN 325 MG TAB PO ONE; +DEXAMETHASONE SOD PHOSPHATE 4 MG/ML 1 ML VIAL IV ONE; -HEPARIN SODIUM 1,000 UN/ML (10ML VL) ONE; +HEPARIN SODIUM,PORCINE/PF 5,000 UNIT/0.5 ML SYRINGE SQ PRN; +HYDROmorphone 0.5 MG/0.5 ML SYRINGE IVP PRN; -IOPAMIDOL-370 125ML BTL INJ ONE; +LACTATED RINGERS 1,000 ML IV SCH; -LIDOCAINE 1% INJ 10MG/ML (20 ML MDV) ONE; -LIDOCAINE 1% INJ 10MG/ML (20 ML MDV) SQ ONE; -MIDAZOLAM 2 MG/2 ML VIAL IV ONE; +MIDAZOLAM 2 MG/2 ML VIAL IV PRN; -NITROGLYCERIN SL TABS 0.4 MG TAB SUBLINGUAL PRN; +ONDANSETRON 4 MG/2 ML VIAL IVP ONE; +Pre Op ABX Message 1 EACH MISC MISCELLANE ONE; -RX INFO: IV CONTRAST WAS GIVEN 1 EACH MISC MISCELLANE PRN; +SCOPOLAMINE 1.5MG/72HR PATCH TRANSDERM ONE; -SODIUM CHLORIDE 0.9% 1,000 ML IV SCH; -SODIUM CHLORIDE 0.9% 1,000 ML in EMPTY BAG 1 BAG IV ONE; -VERAPAMIL 2.5 MG/ML 2 ML AMP ONE; -VERAPAMIL SYRINGE (5 MG/10 ML) INTRAARTER ONE; -fentaNYL (PF) 50 MCG/ML 2 ML AMP IV ONE; -fentaNYL (PF) 50 MCG/ML 2 ML AMP ONE
[2021-05-11 08:44] LABS: Glucose,Whole Blood 181 mg/dL (75-99)
[2021-05-11] MEDS ORDERED: LIDOCAINE 1% (10MG/ML) FOR IV START INTRADERMA ONE (08:45)
[2021-05-11] MEDS ORDERED: ALPRAZolam 0.5 MG TAB ONE (08:47)
[2021-05-11] MEDS ORDERED: LIDOCAINE 1% INJ 10MG/ML (20 ML MDV) SQ ONE (09:21)
[2021-05-11] MEDS ORDERED: .fentaNYL (PF) 50 MCG/ML 2 ML AMP ONE (11:17)
[2021-05-11] MEDS ORDERED: KETOROLAC 15 MG/ML 1 ML VIAL ONE (11:17)
[2021-05-11] MEDS ORDERED: PROPOFOL 10 MG/ML 20 ML VIAL IV ONE (11:17)
[2021-05-11] MEDS ORDERED: LIDOCAINE 1% INJ 10MG/ML (20 ML MDV) ONE (11:17)
[2021-05-11] MEDS ORDERED: HYDROmorphone (PF) 1 MG/ML ONE (11:17)
[2021-05-11] MEDS ORDERED: SODIUM CHLORIDE 0.9% 100 ML with ceFAZolin 2,000 MG IV ONE ×2 (11:40)
[2021-05-11] MEDS ORDERED: BUPIVACAINE (PF) 0.25% 30 ML VIAL SQ ONE ×2 (11:45→11:48)
[2021-05-11] MEDS ORDERED: LACTATED RINGERS 1,000 ML IV ONE (12:29)
[2021-05-11] MEDS ORDERED: NALOXONE 0.4 MG/ML 1 ML VIAL IV PRN (12:45)
[2021-05-11] MEDS ORDERED: HYDROcodone/APAP 5-325MG 1 EACH TAB PO PRN (12:45)
[2021-05-11 12:47] VITALS: TEMP 97.8
--- NOTE | 2021-05-11 12:49 | P.OP ---
Date of Procedure: 05/11/21 Procedure(s) Performed: PREOPERATIVE DIAGNOSIS: Right breast cancer POSTOPERATIVE DIAGNOSIS: Same PROCEDURE: Right Breast wire localization lumpectomy SURGEON: Ayleen EBL: Minimal ANESTHESIA: General COMPLICATIONS: None OPERATIVE PROCEDURE: Patient was placed on the operating room table in the supine position. The wire entrance site was then addressed. This was present at the 9:00 location. A curvilinear incision was made adjacent to the wire entrance site. I followed the wire down into the breast tissue. An adequate lumpectomy specimen then took place around the wire. Margins of 1.5-2 cm worth attempted to be achieved. Palpation of the specimen suggested that the posterior margin was somewhat close. I took an additional margin posteriorly and this margin was painted the appropriate color on the new margin side. The initial specimen was also painted the appropriate 6 colors. Clips were used to identify the lumpectomy cavity. The clip was confirmed to be within the lumpectomy specimen by radiology. The subcutaneous tissues were closed using 3- 0 Vicryl sutures. The skin was closed using a running 4-0 Monocryl stitch. Dressings were then applied. DISPOSITION: Stable to recovery room
[2021-05-11 12:53] LABS: Glucose,Whole Blood 142 mg/dL (75-99)
[2021-05-11 12:59] VITALS: RESP 16
[2021-05-11 14:20] VITALS: PULSE 76
[2021-05-11 14:23] VITALS: BP 119/70
--- NOTE | 2021-05-11 16:17 | MM ---
EXAMINATION TYPE: MG pre op needle loc RT DATE OF EXAM: 05/11/2021 COMPARISON: NONE CLINICAL HISTORY: Abnormal biopsy TECHNIQUE: Needle localization with wire placement and surgical excision of area of concern in the ri t breast. FINDINGS: The procedure of needle localization with wire placement for surgical excision was explaine d to the patient. Risk, benefits, and alternatives were discussed. An informed consent was then obt ained. A timeout was performed. The overlying skin was prepped and draped in usual sterile fashion. Lidocaine 1% was used as anesthe tic into the skin and subcutaneous tissue up to the level of area of concern. A 7 cm needle was used . This was placed via a lateral approach under mammographic guidance. Subsequent 90 degrees mammogr am show the needle to be in satisfactory position relative to the targeted area. The wire was placed through the needle and the needle was withdrawn. The wire was fixed to patient's skin. Images were marked for surgeon. The patient tolerated the procedure well without any immediate complication. Specimen: The wire and the targeted core marker are identified within the specimen mammogram. IMPRESSION: 1. Successful wire localization and excision. Recommendations: 1. Recommendations are pending pathology results.
== END 2021-05-11 14:45 | disposition home or self-care (01) ==
LOC: OR 07:53
PROVIDERS: ATTEND Surgery
DX: C50.919 Malignant neoplasm of unspecified site of unspecified female breast (principal); I10 Essential (primary) hypertension; M19.90 Unspecified osteoarthritis, unspecified site; Z98.84 Bariatric surgery status; Z90.49 Acquired absence of other specified parts of digestive tract; Z90.710 Acquired absence of both cervix and uterus; Z98.890 Other specified postprocedural states; E11.9 Type 2 diabetes mellitus without complications; K21.9 Gastro-esophageal reflux disease without esophagitis; Z79.84 Long term (current) use of oral hypoglycemic drugs; Z79.4 Long term (current) use of insulin; Z79.899 Other long term (current) drug therapy; Z91.048 Other nonmedicinal substance allergy status; Z91.09 Other allergy status, other than to drugs and biological substances
CPT/HCPCS: 76098; 19281; 19301; C1819; J1100; J2405; J0690; J2001; J3010; J1170; J1885; J2704; J1644

== ENCOUNTER → 2021-06-22 | Outpatient (CLI) | payer MEDICARE ==
--- NOTE | 2021-06-25 09:41 | BD ---
EXAMINATION TYPE: Axial Bone Density DATE OF EXAM: 06/22/2021 COMPARISON: DEXA bone scan April 06, 2020 CLINICAL HISTORY: Breast DCIS. Postmenopausal female. Height: 5 FT 6 IN Weight: 251 FRAX RISK QUESTIONS: Alcohol (3 or more units per day): NO Family History (Parent hip fracture): NO Glucocorticoids (More than 3mos): NO (Ex: prednisone, prednisolone, methylprednisolone, dexamethasone, and hydrocortisone). History of Fracture in Adulthood: YES Secondary Osteoporosis: 1. Type 1 Diabetes: TYPE 2 2. Hyperthyroidism: NO 3. Menopause before 45: NO 4. Malnutrition: NO 5. Chronic liver disease: NO Rheumatoid Arthritis: YES Current Tobacco Use: NO RISK FACTORS HISTORY OF: Surgery to Spine/Hip(right/left)/Wrist (right/left): SPINE (2009) Family History of Osteoporosis: NO Active: NO Diet low in dairy products/other sources of calcium: NO Postmenopausal woman: YES Take estrogen and/or progesterone medications: NO Lost more than 2 inches in height since high school: NO Frequent falls: NO Poor Health: GOOD Hyperparathyroidism: NO Adrenal Insufficiency: NO MEDICATIONS: Additional Medications: CYMBALTA, LYRICA, LASIX, COREG, LISINOPRIL, HUMALOG,LANTUS, METFORMIN, CARD JENNY IOL,ATORVASTATIN, ZETIA,LEXYPRO Additional History: [facility] CARPAL TUNNEL SURG X TWO EACH, BREAST CANCER FINISHING RADIATION 2020 GETTING READY TO START HORMONE O[place]INKA EXAM MEASUREMENTS: Bone mineral density about the R hip (g/cm2): 1.108 Bone mineral density about the L hip (g/cm2): 1.052 T Score values are as follows: -----R Neck: 0.5 -----L Neck: 0.1 -----R Total: 1.0 -----L Total: 0.7 Bone mineral density has: DECREASED -0.6 % since study of: 2019 IMPRESSION: Normal (Values between +1 and -1 indicate normal bone mass). Consider repeating this study in 5 year s or sooner if there is some new clinical indication. NOTE: T-SCORE=SD OF THE YOUNG ADULT MEAN.
== END | disposition home or self-care (01) ==
LOC: RADBDWWP 16:19
PROVIDERS: ATTEND Internal Medicine Hematology & Oncology
DX: Z78.0 Asymptomatic menopausal state (principal)
CPT/HCPCS: 77080

== ENCOUNTER → 2021-12-25 | Outpatient (CLI) | payer MEDICARE ==
[2021-12-25 14:43] LABS: ALT 20 U/L (8-44); AST 17 U/L (13-35); African American GFR (CKD) 95.8 (60.0-200.0); Albumin 4.2 g/dL (3.8-4.9); Albumin/Globulin Ratio 1.79 (1.60-3.17); Alkaline Phosphatase 116 U/L (41-126); BUN/Creat Ratio 17.98 Ratio (12.00-20.00); Blood Urea Nitrogen 14.1 mg/dL (9.0-27.0); Calcium 9.4 mg/dL (8.7-10.3); Carbon Dioxide 26.9 mmol/L (20.0-27.5); Chloride 103 mmol/L (96-109); Chol/HDL Ratio 3.58 Ratio; Globulin 2.4 g/dL (1.6-3.3); Glucose 202 mg/dL (70-110); LDL Cholesterol,Calculated 74.1 mg/dL (0.0-131.0); Non-African American GFR(CKD) 82.7 (60.0-200.0); Potassium 4.2 mmol/L (3.5-5.5); Sodium 144 mmol/L (135-145); Total Protein 6.6 g/dL (6.2-8.2)
== END | disposition home or self-care (01) ==
LOC: LABWHC1 08:52
PROVIDERS: ATTEND Pediatrics
DX: Z13.1 Encounter for screening for diabetes mellitus (principal); E11.65 Type 2 diabetes mellitus with hyperglycemia
CPT/HCPCS: 36415; 80053; 80061; 82306

== ENCOUNTER → 2022-03-29 | Outpatient (CLI) | payer MEDICARE ==
--- NOTE | 2022-03-29 12:14 | MM ---
Reason for Exam: Follow-up at short interval from prior study. Last screening mammogram was performed 12 month(s) ago. Indicated Problems: Pain of the right side (Global) for 2 Week(s) : rt lat breast pain near ribs off and on [address] does not know. Patient History: Menarche at age 18. First Full-Term at age 19. Left ovary removed at age 42. Right ovary removed at age 42. Hysterectomy at age 42. Postmenopausal. Patient has history of breast feeding. Breast cancer, right, age 60. Previous chest radiation therapy at age 60. Estrogen and Progesterone for 3 months. 05/11/2021, Lumpectomy on the Right side. 05/11/2021, Malignant Core Biopsy on the right side. 04/24/2021, Malignant Core Biopsy on the right side. Maternal aunt had breast cancer. Maternal aunt had breast cancer. Prior Study Comparison: 02/24/2012 Screening Mammogram, [facility]. 11/15/2015 Bilateral Screening Mammogram, [facility]. 12/19/2016 Bilateral Screening Mammogram, [facility]. 01/09/2018 Bilateral Screening Mammogram, [facility]. 03/08/2019 Right Diagnostic Ultrasound, [facility]. 03/21/2020 Bilateral Screening Mammogram, [facility]. 03/28/2021 Bilateral Screening Mammogram, [facility]. 04/04/2021 Right Diagnostic Mammogram, [facility]. 04/04/2021 Right Diagnostic Ultrasound, [facility]. 04/24/2021 Right Diagnostic Mammogram, [facility]. Tissue Density: There are scattered fibroglandular densities. Findings: Analyzed By CAD. No new masses seen Stable postoperative changes right breast. Overall Assessment: Benign, BI-RAD 2 Management: Diagnostic Mammogram of both breasts in 1 year. A clinical breast exam by your physician is recommended on an annual basis and results should be correlated with mammographic findings. This exam should not preclude additional follow-up of suspicious palpable abnormalities. Results were given to the patient verbally at the time of exam. Electronically signed and approved by: Sherwin Felix M.D. Radiologis
== END | disposition home or self-care (01) ==
LOC: RADMAMWWP 10:49
PROVIDERS: ATTEND Radiology Radiation Oncology
DX: R92.8 Other abnormal and inconclusive findings on diagnostic imaging of breast (principal); Z78.0 Asymptomatic menopausal state; Z80.3 Family history of malignant neoplasm of breast
CPT/HCPCS: 77066; G0279; 77062

== ENCOUNTER 2022-05-28 07:03 | Day surgery (SDC) | payer MEDICARE ==
[2022-05-23 15:10] VITALS: BMI 38.7
[~2022-05-28 07:03] MED LIST changes: -ACETAMINOPHEN TAB 500 MG TAB PO PRN; -DEXAMETHASONE SOD PHOSPHATE 4 MG/ML 1 ML VIAL IV ONE; -HEPARIN SODIUM,PORCINE/PF 5,000 UNIT/0.5 ML SYRINGE SQ PRN; -HYDROmorphone 0.5 MG/0.5 ML SYRINGE IVP PRN; +LIDOCAINE 1% (10MG/ML) FOR IV START INTRADERMA PRN; -MIDAZOLAM 2 MG/2 ML VIAL IV PRN; -ONDANSETRON 4 MG/2 ML VIAL IVP ONE; -Pre Op ABX Message 1 EACH MISC MISCELLANE ONE; -SCOPOLAMINE 1.5MG/72HR PATCH TRANSDERM ONE
[2022-05-28 07:33] LABS: Glucose,Whole Blood 123 mg/dL (70-110)
[2022-05-28 07:36] VITALS: TEMP 98
[2022-05-28] MEDS ORDERED: LIDOCAINE 2% INJ 20 MG/ML (2 ML VIAL) ONE (08:02)
[2022-05-28] MEDS ORDERED: ONDANSETRON 4 MG/2 ML VIAL ONE (08:02)
[2022-05-28] MEDS ORDERED: PROPOFOL 10 MG/ML 20 ML VIAL IV ONE (08:02)
--- NOTE | 2022-05-28 08:42 | P.PCN ---
Date of Procedure: 05/28/22 Procedure(s) Performed: PREOPERATIVE DIAGNOSIS: Abnormal stool test POSTOPERATIVE DIAGNOSIS: Poor prep, transverse colon polyp PROCEDURE: Colonoscopy with snare polypectomy ANESTHESIA: MAC SURGEON: Osmany Abbasi M.D. SPECIMENS: Polyp ENDOSCOPIC PROCEDURE: The patient was placed on the endoscopy table in the left decubitus position. The Olympus colonoscope was inserted into the anus and passed under direct visualization to the base of the cecum. The appendiceal orifice was visualized. From that point the scope was slowly withdrawn inspecting all surfaces carefully. There were no neoplastic inflammatory or polypoid lesions throughout the cecum or ascending colon. In the proximal transverse colon a small polyp was seen and removed using the snare with cautery technique. The remainder of the transverse descending sigmoid and rectum was free of identifiable abnormalities. The patient's prep was quite poor with retained liquid and semisolid stool throughout. There were not able to fully visualize much of the mucosa. Is no visible diverticulosis. Digital rectal examination was normal. The patient was taken to the recovery room in stable condition per anesthesia guidelines. RECOMMENDATIONS: Resume diet. Await biopsy results. Repeat colonoscopy 6-12 months because of the poor prep.
[2022-05-28 09:10] VITALS: BP 120/72; PULSE 68; RESP 18
== END 2022-05-28 09:22 | disposition home or self-care (01) ==
LOC: ORWHC2ENDO 07:03
PROVIDERS: ATTEND Surgery
DX: K63.5 Polyp of colon (principal); I25.10 Atherosclerotic heart disease of native coronary artery without angina pectoris; I10 Essential (primary) hypertension; E78.5 Hyperlipidemia, unspecified; G47.33 Obstructive sleep apnea (adult) (pediatric); E11.9 Type 2 diabetes mellitus without complications; K21.9 Gastro-esophageal reflux disease without esophagitis; M19.90 Unspecified osteoarthritis, unspecified site; Z79.899 Other long term (current) drug therapy; Z79.84 Long term (current) use of oral hypoglycemic drugs; Z98.890 Other specified postprocedural states
CPT/HCPCS: 88305; 45385; J2405; J2704; J2001

== ENCOUNTER 2022-11-26 08:35 | Day surgery (SDC) | payer MEDICARE ==
[2022-11-22 16:35] VITALS: BMI 38.9
[2022-11-26 09:14] VITALS: TEMP 98.5
[2022-11-26 09:21] LABS: Glucose,Whole Blood 139 mg/dL (70-110)
[2022-11-26] MEDS ORDERED: PROPOFOL 10 MG/ML 20 ML VIAL IV ONE (09:32)
--- NOTE | 2022-11-26 09:34 | P.GSHP ---
History of Present Illness H&P Date: 11/26/22 Chief Complaint: Screening with history of polyps 61-year-old female here for colonoscopy. Patient last May had a colonoscopy with a poor prep. A small hyperplastic transverse colon polyp was seen. Otherwise no bowel complaints. Patient did have abnormal stool test. History of polyps several years ago. Past Medical History Past Medical History: Blood Disorder, Cancer, Diabetes Mellitus, GERD/Reflux, Hyperlipidemia, Hypertension Additional Past Medical History / Comment(s): Possible heart murmur. Hx Infectious Blood Disease(unknown name) 6-7 yrs ago. Insomnia. RT BREAST CANCER History of Any Multi-Drug Resistant Organisms: None Reported Past Surgical History: Back Surgery, Bariatric Surgery, Breast Surgery, Cholecystectomy, Hysterectomy, Joint Replacement, Orthopedic Surgery Additional Past Surgical History / Comment(s): LYSIS OF ADHESIONS, few surgeries for cysts and scar tissue on stomach, RIGHT ANKLE REPAIR, RIGHT ROTATOR CUFF REPAIR, CARPAL TUNNEL SURGERY BILATERALLY X2, COLONSCOPY, lap band removal,LEFT TOTAL KNEE REPLACEMENT X4, RIGHT KNEE SCOPES X3. RT BREAST LUMPECTOMY 05/11/21 Past Anesthesia/Blood Transfusion Reactions: Motion Sickness, Postoperative Nausea & Vomiting (PONV) Smoking Status: Never smoker - Past Family History Mother Family Medical History: Cancer Father Family Medical History: Deep Vein Thrombosis (DVT) Medications and Allergies Home Medications Medication Instructions Recorded Confirmed Type DULoxetine HCL [Cymbalta] 60 mg PO BID 07/15/14 11/26/22 History Ezetimibe [Zetia] 10 mg PO HS 07/15/14 11/26/22 History Furosemide [Lasix] 40 mg PO Q2D 07/15/14 11/26/22 History Insulin Glargine [Lantus Vial] 45 unit SQ HS 07/15/14 11/26/22 History metFORMIN HCL [Glucophage] 500 mg PO BID 07/15/14 11/26/22 History Cholecalciferol (Vitamin D3) 125 mcg PO DAILY 05/09/21 11/26/22 History [Vitamin D3 (125 MCG = 5,000 IU)] Escitalopram [Lexapro] 10 mg PO QAM 05/09/21 11/26/22 History Zinc 50 mg PO DAILY 05/09/21 11/26/22 History Aspirin EC [Ecotrin Low Dose] 81 mg PO DAILY 05/23/22 11/26/22 History Letrozole [Femara] 2.5 mg PO DAILY 05/23/22 11/26/22 History Pioglitazone [Actos] 15 mg PO DAILY 05/23/22 11/26/22 History carvediloL [Coreg] 6.25 mg PO BID 05/23/22 11/26/22 History Ascorbic Acid [Vitamin C] 500 mg PO DAILY 11/22/22 11/26/22 History Docusate Calcium 240 mg PO DAILY 11/22/22 11/26/22 History Dulaglutide [Trulicity] 4.5 mg SQ TU 11/22/22 11/26/22 History Escitalopram [Lexapro] 5 mg PO DAILY 11/22/22 11/26/22 History Rosuvastatin Calcium 5 mg PO DAILY 11/22/22 11/26/22 History Allergies Allergy/AdvReac Type Severity Reaction Status Date / Time nickel Allergy Rash/Hives Verified 11/26/22 09:04 skin glue dermabond Allergy Rash/Hives Uncoded 11/26/22 09:04 Surgical - Exam Vital Signs Temp Pulse Resp BP Pulse Ox 98.5 F 68 18 142/70 99 11/26/22 09:09 11/26/22 09:09 11/26/22 09:09 11/26/22 09:09 11/26/22 09:09 Physical exam: General: Well-developed, well-nourished HEENT: Normocephalic, sclerae nonicteric Abdomen: Nontender, nondistended Extremities: No edema Neuro: Alert and oriented Results - Labs Abnormal Lab Results - Last 24 Hours (Table) 11/26/22 Range/Units 09:18 POC Glucose (mg/dL) 139 H (70-110) mg/dL Assessment and Plan (1) Colon polyps Narrative/Plan: Will proceed with colonoscopy at this time. Current Visit: Yes Status: Acute Code(s): K63.5 - POLYP OF COLON SNOMED Code(s): 71792308
--- NOTE | 2022-11-26 09:46 | P.PCN ---
Date of Procedure: 11/26/22 Procedure(s) Performed: PREOPERATIVE DIAGNOSIS: Abnormal stool tests, history of polyps, recent colonoscopy with poor prep POSTOPERATIVE DIAGNOSIS: Diverticulosis, poor prep PROCEDURE: Colonoscopy aborted ANESTHESIA: MAC SURGEON: Osmany Abbasi M.D. SPECIMENS: None ENDOSCOPIC PROCEDURE: The patient was placed on the endoscopy table in the left decubitus position. The Olympus colonoscope was inserted into the anus and passed under direct visualization to the descending colon. The patient had liquid and solid stool throughout. I could not visualize the lumen well. The scope was withdrawn and the procedure was aborted. There was mild left-sided diverticulosis seen. Digital rectal examination was normal. The patient was taken to the recovery room in stable condition per anesthesia guidelines. RECOMMENDATIONS: We'll discuss endoscopic findings with patient. Patient having significant back pain. This may be causing some colonic dysmotility along with the patient's chronic medications. Recommend consideration for repeat attempt when back issues resolved.
[2022-11-26 09:50] VITALS: RESP 16
[2022-11-26 09:57] LABS: Glucose,Whole Blood 135 mg/dL (70-110)
[2022-11-26 10:41] VITALS: BP 122/69; PULSE 77
== END 2022-11-26 10:35 | disposition home or self-care (01) ==
LOC: ORWHC2ENDO 08:35
PROVIDERS: ATTEND Surgery
DX: K57.30 Diverticulosis of large intestine without perforation or abscess without bleeding (principal); Z86.010 Personal history of colon polyps; I10 Essential (primary) hypertension; E78.5 Hyperlipidemia, unspecified; E11.9 Type 2 diabetes mellitus without complications; K21.9 Gastro-esophageal reflux disease without esophagitis; G47.00 Insomnia, unspecified; Z85.3 Personal history of malignant neoplasm of breast; D75.9 Disease of blood and blood-forming organs, unspecified; Z90.49 Acquired absence of other specified parts of digestive tract; F32.A Depression, unspecified; Z79.84 Long term (current) use of oral hypoglycemic drugs; Z79.82 Long term (current) use of aspirin; Z79.85 Long-term (current) use of injectable non-insulin antidiabetic drugs; Z79.52 Long term (current) use of systemic steroids; Z79.4 Long term (current) use of insulin; Z79.899 Other long term (current) drug therapy; Z91.048 Other nonmedicinal substance allergy status; Z88.8 Allergy status to other drugs, medicaments and biological substances
CPT/HCPCS: 45330; J2704; 45378

== ENCOUNTER → 2023-02-11 | Outpatient (CLI) | payer MEDICARE | END | disposition home or self-care (01) | LOC: LABWHC1 09:11 | PROVIDERS: ATTEND Internal Medicine | DX: E11.65 Type 2 diabetes mellitus with hyperglycemia (principal) | CPT/HCPCS: 36415; 83036 ==

== ENCOUNTER → 2023-03-31 | Outpatient (CLI) | payer MEDICARE ==
--- NOTE | 2023-03-31 13:05 | MM ---
Reason for Exam: Follow-up at short interval from prior study. Last screening mammogram was performed 12 month(s) ago. Patient History: Menarche at age 18. First Full-Term at age 19. Left ovary removed at age 42. Right ovary removed at age 42. Hysterectomy at age 42. Postmenopausal. Patient has history of breast feeding. Breast cancer, right, age 60. Previous chest radiation therapy at age 60. Estrogen and Progesterone for 3 months. 05/11/2021, Lumpectomy on the Right side. 05/11/2021, Malignant Core Biopsy on the right side. 04/24/2021, Malignant Core Biopsy on the right side. Maternal aunt had breast cancer. Maternal aunt had breast cancer. Tissue Density: There are scattered fibroglandular densities. Findings: Analyzed By CAD. Postprocedural changes right breast with surgical clips present. Stable fibroglandular tissue/postsurgical change. No new suspicious masses, calcifications or distortions. Overall Assessment: Benign, BI-RAD 2 Management: Screening Mammogram of both breasts in 1 year. Results were given to the patient verbally at the time of exam. Patient should continue monthly self-breast exams. A clinical breast exam by your physician is recommended on an annual basis. This exam should not preclude additional follow-up of suspicious palpable abnormalities. Note on Yaritza scores and lifetime risk: 1. A Yaritza score greater than 3% is considered moderate risk. If this is the case, consider specialist referral to assess eligibility for a risk reducing agent. 2. If overall lifetime risk for the development of breast cancer is 20% or higher, the patient may qualify for future screening with alternating mammogram and breast MRI. Electronically signed and approved by: Raymon Almanzar DO
== END | disposition home or self-care (01) ==
LOC: RADMAMWWP 12:39
PROVIDERS: ATTEND Radiology Radiation Oncology
DX: C50.411 Malignant neoplasm of upper-outer quadrant of right female breast (principal); Z78.0 Asymptomatic menopausal state; Z80.3 Family history of malignant neoplasm of breast
CPT/HCPCS: 77066; G0279; 77062

== ENCOUNTER → 2023-06-23 | Outpatient (CLI) | payer MEDICARE ==
--- NOTE | 2023-06-23 17:55 | BD ---
EXAMINATION TYPE: Axial Bone Density DATE OF EXAM: 06/23/2023 CLINICAL HISTORY: 62 years old Female. ICD-10 CODE: D05.11 BR CANCER Z79.890 Height: 5 ft 6 in Weight: 260 FRAX RISK QUESTIONS: Alcohol (3 or more units per day): no Family History (Parent hip fracture): no Glucocorticoids (More than 3mos): no (Ex: prednisone, prednisolone, methylprednisolone, dexamethasone, and hydrocortisone). History of Fracture in Adulthood: yes Secondary Osteoporosis: 1. Type 1 Diabetes: type 2 2. Hyperthyroidism: no 3. Menopause before 45: no 4. Malnutrition: no 5. Chronic liver disease: no Rheumatoid Arthritis: no Current Tobacco Use: no RISK FACTORS HISTORY OF: Surgery to Spine/Hip(right/left)/Wrist (right/left): lumbar surg When: approx 16 years ago MEDICATIONS: Thyroid Medications: none Osteoporosis Medications: none EXAM MEASUREMENTS: Bone mineral density about the R hip (g/cm2): 1.033 Bone mineral density about the L hip (g/cm2): 0.910 T Score values are as follows: -----R Neck: 0.0 -----L Neck: -0.9 -----R Total: 0.7 -----L Total: -0.5 Z Score values are as follows: -----R Neck: 0.5 -----L Neck: -0.4 -----R Total: 0.8 -----L Total: -0.3 Bone mineral density has: decreased -8.3 % since study of: 2021 Bone mineral density about the L Wrist (g/cm2): 0.666 T Score values are as follows: -----Dist. R+U: 0.5 -----Prox. R+U: -0.7 -----Radius total: -0.1 Z Score values are as follows: -----Dist. R+U: 1.5 -----Prox. R+U: 0.3 -----Radius total: 0.8 first time wrist has been done FRAX%s: The graph provided illustrates a 8.0 % chance for a major osteoporotic fx and a 0.4% chance f or the hips probability for fx in 10 years time. IMPRESSION: Normal (Values between +1 and -1 indicate normal bone mass). Consider repeating this study in 5 year s or sooner if there is some new clinical indication. NOTE: T-SCORE=SD OF THE YOUNG ADULT MEAN.
== END | disposition home or self-care (01) ==
LOC: RADBDWWP 07:49
PROVIDERS: ATTEND Internal Medicine Hematology & Oncology
DX: Z03.89 Encounter for observation for other suspected diseases and conditions ruled out (principal); D05.11 Intraductal carcinoma in situ of right breast; M81.0 Age-related osteoporosis without current pathological fracture; Z79.890 Hormone replacement therapy
CPT/HCPCS: 77080

== ENCOUNTER → 2023-09-09 | Outpatient (CLI) | payer MEDICARE | END | disposition home or self-care (01) | LOC: LABWHC1 08:47 | PROVIDERS: ATTEND Internal Medicine | DX: E11.65 Type 2 diabetes mellitus with hyperglycemia (principal) | CPT/HCPCS: 36415; 82607; 83036 ==

== ENCOUNTER → 2023-11-11 | Outpatient (CLI) | payer MEDICARE ==
[2023-11-11 08:48] LABS: African American GFR (CKD) >90 (>60 ml/min/1.73 sqM); Blood Urea Nitrogen 14 mg/dL (7-17); Non-African American GFR(CKD) >90 (>60 ml/min/1.73 sqM)
--- NOTE | 2023-11-11 11:38 | CT ---
EXAMINATION TYPE: CT chest w con CT DLP: 559.40 mGycm, Automated exposure control for dose reduction was used. DATE OF EXAM: 11/11/2023 9:07 AM COMPARISON: CTA chest 02/18/2020. CLINICAL INDICATION:Female, 62 years old with history of R07.89 OTHER CHEST PAIN; PHH, rt side chest pain, hx of rt side breast cancer TECHNIQUE: Multiple axial images were obtained through the chest following the administration of 100 cc of Isovue 300. . Coronal and sagittal reformats reviewed. FINDINGS: LUNGS/ PLEURA: The lung parenchyma appears unremarkable. No pulmonary nodule or mass. AIRWAY: Patent and unremarkable.. HEART: Size within normal limits. No pericardial effusion. MEDIASTINUM: No pathologic enlarged lymph nodes. VASCULATURE: No aortic aneurysm. MUSCULOSKELETAL: No acute osseous abnormalities. No suspicious osseous abnormality. Prominent Schmorl 's node involving the superior endplate of the T11 vertebral body. SOFT TISSUES/LYMPH NODES: No pathologically enlarged axillary lymph nodes. Partial visualization of p ostsurgical changes of the right breast. LOWER NECK: No significant findings. UPPER ABDOMEN: Postcholecystectomy changes. Postoperative changes along the stomach margin from possi ble hernia repair. IMPRESSION: 1. No CT evidence for acute process. 2. Postsurgical changes of the right breast partially visualized. No lymphadenopathy demonstrated.
== END | disposition home or self-care (01) ==
LOC: RADCTMAIN 07:52
PROVIDERS: ATTEND Internal Medicine Hematology & Oncology
DX: Z85.3 Personal history of malignant neoplasm of breast (principal); M12.9 Arthropathy, unspecified; D05.11 Intraductal carcinoma in situ of right breast; E78.5 Hyperlipidemia, unspecified; Z71.3 Dietary counseling and surveillance
CPT/HCPCS: 82565; 84520; 71260; 36415; Q9967

== ENCOUNTER → 2024-04-02 | Outpatient (CLI) | payer MEDICARE ==
--- NOTE | 2024-04-02 12:30 | MM ---
Reason for Exam: Screening (asymptomatic). Last mammogram was performed 1 year(s) and 1 month(s) ago. Patient History: Menarche at age 18. First Full-Term at age 19. Left ovary removed at age 42. Right ovary removed at age 42. Hysterectomy at age 42. Postmenopausal. Patient has history of breast feeding. Breast cancer, right, age 60. Previous chest radiation therapy at age 60. Estrogen and Progesterone for 3 months. 05/11/2021, Lumpectomy on the Right side. 05/11/2021, Malignant Core Biopsy on the right side. 04/24/2021, Malignant Core Biopsy on the right side. Maternal aunt had breast cancer, age 55. Maternal aunt had breast cancer, age 50. Prior Study Comparison: 04/24/2021 Right Diagnostic Mammogram, [facility]. 03/29/2022 Bilateral MG 3D diag mammo w/cad [facility], [facility]. 03/31/2023 Bilateral MG 3D diag mammo w/cad [facility], [facility]. Tissue Density: There are scattered areas of fibroglandular density. Findings: Analyzed By CAD. Right breast surgical clips. Right breast: There is no suspicious group of microcalcifications or new suspicious mass. Benign-appearing calcifications right breast. Left breast: There is no suspicious group of microcalcifications or new suspicious mass. Overall Assessment: Benign, BI-RAD 2 Management: Screening Mammogram of both breasts in [address] [facility] will attempt to contact patient to return for supplemental views and ultrasound if indicated. Patient should continue monthly self-breast exams. A clinical breast exam by your physician is recommended on an annual basis. This exam should not preclude additional follow-up of suspicious palpable abnormalities. Note on Yaritza scores and lifetime risk: 1. A Yaritza score greater than 3% is considered moderate risk. If this is the case, consider specialist referral to assess eligibility for a risk reducing agent. 2. If overall lifetime risk for the development of breast cancer is 20% or higher, the patient may qualify for future screening with alternating mammogram and breast MRI. [facility], , 04/02/2024 12:27 PM. Electronically signed and approved by: Raymon Almanzar DO
== END | disposition home or self-care (01) ==
LOC: RADMAMWWP 08:53
PROVIDERS: ATTEND Radiology Radiation Oncology
DX: Z12.31 Encounter for screening mammogram for malignant neoplasm of breast (principal); C50.411 Malignant neoplasm of upper-outer quadrant of right female breast; R92.323 Mammographic fibroglandular density, bilateral breasts; Z78.0 Asymptomatic menopausal state; Z90.722 Acquired absence of ovaries, bilateral; Z92.3 Personal history of irradiation; Z80.3 Family history of malignant neoplasm of breast
CPT/HCPCS: 77063; 77067